=== PATIENT | male | born 1960 | race African-American/Black ===

== ENCOUNTER 2021-07-30 14:14 | Emergency (ER) | payer OTHER ==
[~2021-07-30] VITALS: Ht 172.7 cm; Wt 66.2 kg
[2021-08-07 16:08] VITALS: BP 132/70
== END 2021-07-30 15:00 | disposition home or self-care (01) ==
LOC: ER 14:18
DX: T68.XXXA Hypothermia, initial encounter (principal); Z59.00 Homelessness unspecified